=== PATIENT | male | born 1960 | race Caucasian/White ===

== ENCOUNTER → 2024-05-03 06:36 | Day surgery (SDC) | payer BC, SELFPAY | LOC: GI 06:36 | PROVIDERS: ATTENDING PHYSICIAN Specialist; FAMILY PHYSICIAN Family Medicine | DX: Z12.11 Encounter for screening for malignant neoplasm of colon (principal); R19.5 Other fecal abnormalities; D12.0 Benign neoplasm of cecum; D12.3 Benign neoplasm of transverse colon; D12.8 Benign neoplasm of rectum; K57.30 Diverticulosis of large intestine without perforation or abscess without bleeding | CPT/HCPCS: 45385; 88305 ==

== ENCOUNTER → 2024-08-22 12:38 | Outpatient (REF) | payer OTHER, SELFPAY | LOC: RCS 12:38 | PROVIDERS: ATTENDING PHYSICIAN Internal Medicine; FAMILY PHYSICIAN Family Medicine | DX: I47.20 Ventricular tachycardia, unspecified (principal); I47.19 Other supraventricular tachycardia; I49.5 Sick sinus syndrome | CPT/HCPCS: 93306 ==

== ENCOUNTER 2024-10-06 07:01 | Day surgery (SDC) | payer OTHER, SELFPAY ==
--- NOTE | 2024-09-27 13:05 | HPS.HSE ---
Family Physician
-
Family Physician: Maria Teresa Finch
Chief Complaint
-
Palpitations. Near syncope. PACs and PVCs. Nonsustained ventricular tachycardia. Atrial tachycardia.
History of Present Illness
The patient is a 64 year old male presenting today for palpitations. The patient reports palpitations increasing in severity over the last several years. He does recall an episode of palpitations which lasted up to 12 hours in duration
before self-resolving. Dr. Andrea Mcwilliams, his primary bottom precipitator operator, advised him to start Flecainide which has suppressed his more sustained palpitations. He also has had 2 brief near-syncopal episodes in the past 6 months. He has been placed on
several cardiac monitors previously. In totality, his previous monitors show very little ectopy and no significant bradycardia. Ventricular tachycardia was seen only once; however, this was very short. His most recent echocardiogram and previous
nuclear stress test were noted to be normal. It is recommended he proceed with a loop recorder implantation at this time. He denies any current complaints today such as chest pain, shortness of breath, nausea, vomiting, diarrhea, lightheadedness,
dizziness, cough, sore throat, or fever.
Medical History
Past Medical History
Past Medical History: Reports Other
Additional Past Medical History:
1. Palpitations, controlled with Flecainide.
2. Near syncope.
3. PACs and PVCs.
4. Nonsustained ventricular tachycardia.
5. Atrial tachycardia.
6. Incomplete right bundle branch block.
7. Hyperlipidemia.
8. Obstructive sleep apnea, compliant with dental appliance.
9. Colon polyps.
10. Diverticulosis.
11. Remote ophthalmic migraines.
12. Lumbar degenerative disc disease with stenosis.
13. Prediabetes.
Past Surgical History: Reports Other
Additional Past Surgical History:
1. Lipoma excision from left quaker.
2. Appendectomy.
3. Colonoscopy x2.
Social History
Tobacco: Non-smoker
Alcohol: Other (He reportedly drinks alcohol 1-2 times a week. )
Personal:
Living: Other (He lives with his in a 2 story home. )
Family History
Family History: Not pertinent
Allergies / Home Medications
Allergy/Medication List:
Home medications:
1. Atorvastatin 20 mg p.o. daily.
2. Flecainide 100 mg p.o. every 12 hours.
3. Multivitamin 2 tablet p.o. daily.
Allergies: No known allergies.
Review of Systems
-
A 12 point ROS was completed and negative except as noted: Yes
Physical Exam
Vital Signs
Blood pressure 139/84. Heart rate 60. Respirations 18. Pulse ox 99% on room air.
Height 6 feet, 1.5 inches, weight 79.2 kg, BMI 22.7.
Physical Exam
General: Well Developed, Well Nourished and No Apparent Distress
HEENT: NormoCephalic, Moist mucous membranes, Atraumatic and PERRLA
Respiratory: Clear
Cardiac: Bradycardia
GI: Soft, Non Tender and Non Distended
Musculoskeletal: No Edema and Normal Gait & Station
Skin: Warm and Dry
Neuro: AO x 3 and Nonfocal/grossly intact
Laboratory Results
-
EKG 09/27/2024: Sinus bradycardia. Rightward axis. Incomplete right bundle branch block. When compared to the EKG of 02/12/2023, no significant change was found.
Echocardiogram 08/22/2024: LV ejection fraction is 60-65%. No regional wall motion abnormalities are seen. Normal right ventricular size and function. No significant valvular disease.
Nuclear stress test 04/30/2023: The stress EKG is negative for ischemia. No evidence of infarction. Good exercise capacity at 9 minutes (10 METS). The ejection fraction is 59%. This is a low risk study.
Impression/Plan
-
IMPRESSION/PLAN:
1. Palpitations, near syncope, PACs and PVCs, nonsustained ventricular tachycardia, and atrial tachycardia: The patient is in need of a loop recorder implantation with Dr. Nicholas Parker on 10/06/2024. The benefits and risks of the procedure have
been explained to the patient. The patient understands these risks and wishes to proceed.
[2024-09-27 14:07] VITALS: BMI 22.7
--- NOTE | 2024-10-06 14:46 | ITS.CL.IMPLP ---
Greeting Card Maker - Implant Loop
Implant Loop
Procedure Report:
Date of Procedure: September.
Procedure: Insertable Loop Recorder Implant.
Indication: Syncope, SVT.
Performing physician: Nicholas Parker MD, [facility].
Implant: [employer]; Reveal LINQII; Model# LNQ22; Serial# [id number].
Technique: The patient was prepped and draped in the usual fashion. A time-out was performed. No intravenous sedation was administered. Local anesthetic was applied to the left pre-pectoral subcutaneous tissue. Using the insertion kit an incision
was made left of the midline in the fourth intercostal space and the device was implanted subcutaneously and directed towards the nipple. Hemostasis was excellent. The skin was closed with steri-strips. The estimated blood loss was less than 1 ml.
There were no complications. No fluoroscopy. R waves measured 0.24 mV and P waves were visible.
Final Programming: Detections: Afib, tachy at 160 bpm, kristian at 30 bpm, pause at 3 sec.
Conclusion: Uncomplicated insertable loop implant.
Recommendation: Routine post-insertable loop care. The device is MRI conditional without a waiting period and up to 3 Pari.
cc: Andrea Mcwilliams MD and Maria Teresa Finch DO.
== END 2024-10-06 08:23 | disposition home or self-care (01) ==
LOC: CATH 07:01
PROVIDERS: ATTENDING PHYSICIAN Internal Medicine Cardiovascular Disease; FAMILY PHYSICIAN Family Medicine; OTHER PHYSICIAN Internal Medicine
DX: Z09 Encounter for follow-up examination after completed treatment for conditions other than malignant neoplasm (principal); R00.2 Palpitations; R55 Syncope and collapse; I47.20 Ventricular tachycardia, unspecified; I47.19 Other supraventricular tachycardia; I49.3 Ventricular premature depolarization; E78.5 Hyperlipidemia, unspecified; G47.33 Obstructive sleep apnea (adult) (pediatric); Z86.0100 Personal history of colon polyps, unspecified; K57.90 Diverticulosis of intestine, part unspecified, without perforation or abscess without bleeding; R73.03 Prediabetes; G43.909 Migraine, unspecified, not intractable, without status migrainosus; Z79.899 Other long term (current) drug therapy; M51.369 Other intervertebral disc degeneration, lumbar region without mention of lumbar back pain or lower extremity pain; M48.061 Spinal stenosis, lumbar region without neurogenic claudication
CPT/HCPCS: 33285; 93005; C1764

== ENCOUNTER 2025-03-13 08:03 | Day surgery (SDC) | payer OTHER, SELFPAY ==
[2025-03-01 13:18] VITALS: BMI 22.0
[2025-03-01 13:43] LABS: Hematocrit 40.3 % (39.0-52.0); Hemoglobin 13.7 g/dL (13.0-18.0); Mean Corp Hgb Conc. 34.0 g/dL (33.0-37.0); Mean Corpuscular Volume 89.4 fL (80.0-94.0); Nucleated Red Blood Cells % 0 % (-); Platelet Count 172 10^3/uL (130-400); Red Cell Dist. Width 12.6 % (11.5-14.5)
[2025-03-01 14:18] LABS: ALT (SGPT) 34 U/L (0-50); AST (SGOT) 24 U/L (17-59); Albumin 4.9 g/dl (3.5-5.0); Alkaline Phosphatase 55 U/L (38-126); Blood Urea Nitrogen 25 mg/dl (9-20); Calcium 9.6 mg/dl (8.4-10.2); Carbon Dioxide 26 mmol/L (22-30); Chloride 106 mmol/L (98-107); Estimated Creatinine Clearance 100 ml/min; Glucose 99 mg/dl (70-99); Potassium 4.8 mmol/L (3.5-5.1); Sodium 138 mmol/L (135-145); Total Protein 6.9 g/dl (6.3-8.2); eGFR > 60.00
--- NOTE | 2025-03-01 14:43 | HPS.HSE ---
Family Physician
-
Family Physician: Maria Teresa Finch
Chief Complaint
-
Paroxysmal atrial fibrillation.
History of Present Illness
The patient is a 64 year old male presenting today for paroxysmal atrial fibrillation. This arrhythmia was recently diagnosed after a LINQ monitor was implanted on October 06, 2024. The patient reports a longstanding history of palpitations
and 2 near syncopal episodes likely associated with this diagnosis. He is on current pharmacological therapy with Metoprolol Succinate. He was previously taking Flecainide, which reduced his overall burden of palpitations, but did little to control
his arrhythmia. He was prescribed Pradaxa recently for oral anticoagulation. Given his significant symptoms associated with his arrhythmia, he would like to proceed with an Affera atrial fibrillation ablation for more definitive arrhythmia
management. He denies any current complaints today such as chest pain, shortness of breath, nausea, vomiting, diarrhea, lightheadedness, dizziness, cough, sore throat, or fever.
Medical History
Past Medical History
Past Medical History: Reports Other
Additional Past Medical History:
1. Paroxysmal atrial fibrillation, pharmacological therapy with Metoprolol Succinate and oral anticoagulation with Pradaxa.
2. PACs and PVCs.
3. Nonsustained ventricular tachycardia.
4. Paroxysmal atrial tachycardia.
5. Tachycardia-bradycardia syndrome.
6. Incomplete right bundle branch block.
7. LINQ monitor in situ.
8. Hyperlipidemia.
9. Obstructive sleep apnea, compliant with dental appliance.
10. Colon polyps.
11. Diverticulosis.
12. Remote ophthalmic migraines.
13. Lumbar degenerative disc disease with stenosis.
14. Prediabetes.
15. Mild leukopenia.
Past Surgical History: Reports Other
Additional Past Surgical History:
1. LINQ monitor implant.
2. Lipoma excision from left latter day.
3. Appendectomy.
4. Colonoscopy x2.
Social History
Tobacco: Non-smoker
Alcohol: Other (He reportedly drinks alcohol 1-2 times a week.)
Personal:
Living: Other (He lives with his in a 2 story home. His sister is temporarily leaving there as well. )
Family History
Family History: Not pertinent
Allergies / Home Medications
Allergy/Medication List:
Home medications:
1. Atorvastatin 20 mg p.o. daily.
2. Pradaxa 150 mg p.o. twice a day.
3. Metoprolol Succinate 25 mg p.o. daily.
Allergies: Wasps.
Review of Systems
-
A 12 point ROS was completed and negative except as noted: Yes
Physical Exam
Vital Signs
Blood pressure 137/87. Heart rate 47. Respirations 18. Pulse ox 99% on room air.
Height 6 feet, 1.5 inches. Weight 76.5 kg. BMI 21.9.
Physical Exam
General: Well Developed, Well Nourished and No Apparent Distress
HEENT: NormoCephalic, Moist mucous membranes, Atraumatic and PERRLA
Respiratory: Clear
Cardiac: Bradycardia
GI: Soft, Non Tender and Non Distended
Musculoskeletal: No Edema and Normal Gait & Station
Skin: Warm and Dry
Neuro: AO x 3 and Nonfocal/grossly intact
Laboratory Results
-
03/01/25 13:25
03/01/25 13:25
Laboratory Results
Total Bilirubin 0.7 mg/dl (0.2-1.3) 03/01/25 13:25
AST 24 U/L (17-59) 03/01/25 13:25
ALT 34 U/L (0-50) 03/01/25 13:25
Alkaline Phosphatase 55 U/L (38-126) 03/01/25 13:25
Blood type B positive.
EKG 03/01/2025: Sinus bradycardia. Incomplete right bundle branch block.
Echocardiogram 08/22/2024: LV ejection fraction is 60-65%. No regional wall motion abnormalities are seen. Normal right ventricular size and function. No significant valvular disease. No significant change since the prior study of 03/24/2023.
Nuclear stress test 04/30/2023: Negative EKG for ischemia. Good exercise capacity at 9 minutes (10 METS). The ejection fraction is 59%. This is a low risk study.
Impression/Plan
-
IMPRESSION/PLAN:
1. Paroxysmal atrial fibrillation: The patient is in need of an Affera atrial fibrillation ablation with Dr. Bárbaar Smith on 03/13/2025. The benefits and risks of the procedure have been explained to the patient. The patient understands these risks
and wishes to proceed. He will not be required to undergo a pre-procedural transesophageal echocardiogram as he has been compliant with his home oral anticoagulation. He is aware to continue Pradaxa uninterrupted prior to his ablation. He will hold
his Pradaxa, however, the morning of his ablation.
[2025-03-13] VITALS (8 sets, daily range): BP systolic 103–152; BP diastolic 58–82; BMI 22.0
[2025-03-13 11:46] LABS: ACT-LR - POC 393 Seconds (116-155)
--- NOTE | 2025-03-13 12:11 | ITS.CL.ABL ---
Income Tax Analyst - Ablation
Ablation
Procedure Report:
AFIB ablation:
Mr. Haas is a very pleasant 65 yr old gentleman with medical history significant for symptomatic paroxysmal atrial fibrillation is here in the EP lab for atrial fibrillation ablation
Date of Procedure:
03/13/2025
Indications:
Symptomatic paroxysmal atrial fibrillation
Pre-Operative Diagnosis:
Paroxysmal atrial fibrillation
Post-Operative Diagnosis:
Paroxysmal atrial fibrillation
Procedure Performed:
Atrial fibrillation ablation with wide area circumferential ablation (WACA) approach for pulmonary vein isolation
Performing Physician:
Bárbara Smith MD
Assistants:
EP staff
Anesthesia:
See anesthesia records
Detailed Description of the Procedure:
Written informed consent was obtained from the patient after a full explanation of the risks and benefits of the procedure including the risks of sedation and anesthesia.
The patient was brought to the electrophysiology laboratory in stable condition in fasting state. Continuous electrocardiographic and hemodynamic monitoring was initiated.
The initial rhythm was sinus rhythm.
The procedure site was meticulously prepared with surgical scrub and allowed to dry with no pooling. Sterile draping was applied to cover the procedure site. The image intensifier was draped with sterile bag and positioned over the patient. After
infusion of local anesthetic, vascular access was obtained under ultrasound guidance and sheaths were placed over guide wire as detailed below.
The images of the ultrasound of the femoral vessels were stored in patient chart.
Sheath and Catheter Placement:
In the right femoral vein, a 10-Vietnamese sheath was placed under ultrasound guidance for use during the ablation procedure. In the right femoral vein, another 9-Fr sheath was placed for use during intracardiac echo procedure.
The sheaths were upgraded as needed during the case. Intracardiac catheters were positioned using direct fluoroscopic guidance.� ICE catheter was placed in RA. The following catheters / sheaths were placed
Sheaths:
��������� Agilis sheath in right femoral vein upgraded from 10Fr in right femoral vein
��������� 9Fr in right femoral vein
Catheters:
��������� The Affera Sphere 9 catheter -bidirectional D/F� - at locations of HRA, LA and LV.
��������� ICE catheter -AccuNav -� at locations of RA, SVC, and RV.
Heparin was initiated after the access was obtained.
Intracardiac ECHO:
An 8-Vietnamese AcuNav intracardiac ECHO (ICE) probe was advanced through the 9-Vietnamese sheath in the left femoral vein into the right atrium under fluoroscopic and ICE ultrasound image guidance and a baseline ECHO study was performed. The left atrial
size was mildly dilated. There was trace tricuspid regurgitation. The aortic valve was grossly normal. There was normal left ventricular size and function. There is a trace pericardial effusion. The TALI has baseline normal velocities. The pulmonary
had good flow identified.
During the procedure, ICE was used for monitoring of complications, guidance of trans-septal puncture, monitor the catheter position and tracking ablation lesions. No change in the pericardial space noted throughout the procedure.
Trans-septal Puncture:
Heparin was initiated and infused to maintain appropriate ACT. A J-tipped guidewire was advanced through into the superior vena cava under fluoroscopic and ICE guidance. The Agilis sheath with BRK needle was advanced into the superior vena cava over
the guidewire. The apparatus was withdrawn until it was in contact with the fossa ovalis. The position was adjusted based on fluoroscopy and ultrasound images from ICE. Under fluoroscopic, hemodynamic and ICE ultrasound guidance, left atrium was
cannulated by advancing the needle. Once atrial septum was cannulated, the needle was pulled back and the guide wire was advanced through the needle into the left atrium. The guide wire was advanced into the left superior pulmonary vein. Both the
sheath and the dilator was advanced into the left atrium. The dilator with the needle was withdrawn. Blood was aspirated from the Agilis sheath and arterial blood confirmed. The sheath was flushed. Saline injection noted into the left atrium on ICE.
The waveform of the LA pressure was recorded. The mapping catheter was advanced in the Agilis sheath into the left pulmonary vein.
3D Electroanatomic Mapping:
Using the Sphere 9 Affera catheter advanced through Agilis sheath into the left atrium, an electroanatomic map (EAM) of the left atrium was created using [employer]� mapping system with Prism-1 software. The map was used for localization of catheter
position and tacking of ablation lesions. The EAM of the left atrium showed a total of 4 PVs with a two left and two right sided pulmonary veins with all electrically connected to the body the LA. It showed no significant scar on the posterior wall
of the LA. The LA was dilated in size.
Following the EAM, preparation were made for ablation.
Ablation:
Ablation # 2: Pulmonary vein Isolation:
Glycopyrrolate 0.2 mg was given prior to the placement of ablation.
Pulsed field ablation was performed using an open irrigation, bidirectional, contact sensing, dual energy ablation catheter ([employer] sphere -9) by completing the circumferential lesions around the left and right pulmonary veins achieving pulmonary
vein isolation.
Confirmation of the PVI and bidirectional block:
Following achievement of entrance block at the pulmonary veins, pacing from the Sphere 9 affera catheter in each of the four veins at 20 milliamps for 4 milliseconds showed entrance and exit block.
The LA was mapped with The [employer]� mapping system with Prism-1 software in sinus rhythm confirming the line of block at the ablation lesions lines.
�
EP study:
Sinus Node Function: The sinus node functions are within acceptable normal range.
Atrioventricular Rohan Function: �Normal AV conduction noted with normal AV rohan conduction time.
Procedure End
ICE study was done again that showed no epicardial accumulation. No complications noted.
Following the completion of the EP study, catheters were removed. Protamine 40 mg was given at the end of the procedure and ACT was checked repeatedly. The sheaths were removed and hemostasis achieved with VASCADE and manual compression after
acceptable ACT is achieved.
Left atrial Pressure:
Pre-Procedure: Mean LA pressure was 8mmHg
Post-Procedure: Mean LA pressure was 9mmHg
Post-Procedure: Mean RA pressure was 6mmHg
Estimated Blood loss:
<10 cc
Specimens Removed:
None.
Implants / Devices:
None
Urine output:
None
Packs / Drains/ Tubes:
None
Instrument / Sponge Count Correct:
Yes
Complications of the Procedure:
None
Condition of Patient at Time of Transfer:
Hemodynamically stable with no neurological or vascular compromise.
Summary:
��������� Successful atrial fibrillation ablation with circumferential bidirectional line of block at pulmonary vein antra (Pulmonary vein isolation)
Figures from the Procedure:
Figure 1: The electroanatomic mapping (EAM) of the left atrium with bipolar voltage (purple indicates normal electrical activity with red as no myocardial muscle electric activity indicating a line of block or scar.
--- NOTE | 2025-03-13 14:49 | W.PN.UPDATE ---
Update Note
Progress Note Update
65 yo WM s/p PVI (same day). He denies cp, sob, ryan diet, voiding, R fem site vascade c/d/i no HT, soft, EKG SR. He will resume Pradaxa tonight and continue metoprolol. Activity restrictions reviewed. He will f/u Dr. Parker in 2-4 weeks. He is for
d/c home after 3pm.
== END 2025-03-13 15:00 | disposition home or self-care (01) ==
LOC: CATH 08:03
PROVIDERS: ATTENDING PHYSICIAN Internal Medicine Cardiovascular Disease; FAMILY PHYSICIAN Family Medicine; OTHER PHYSICIAN Internal Medicine Cardiovascular Disease
DX: I48.0 Paroxysmal atrial fibrillation (principal); I47.20 Ventricular tachycardia, unspecified; I49.5 Sick sinus syndrome; E78.5 Hyperlipidemia, unspecified; I45.10 Unspecified right bundle-branch block; G47.33 Obstructive sleep apnea (adult) (pediatric); Z86.0100 Personal history of colon polyps, unspecified; K57.90 Diverticulosis of intestine, part unspecified, without perforation or abscess without bleeding; D72.819 Decreased white blood cell count, unspecified; R73.03 Prediabetes; M51.369 Other intervertebral disc degeneration, lumbar region without mention of lumbar back pain or lower extremity pain; M48.061 Spinal stenosis, lumbar region without neurogenic claudication; I47.19 Other supraventricular tachycardia; Z79.899 Other long term (current) drug therapy; Z79.02 Long term (current) use of antithrombotics/antiplatelets
CPT/HCPCS: C1769; C1766; C1892; C1894; C1733; 36415; 80053; 85025; 85347; 86850; 86900; 86901; 93005; 93656; C1760